=== PATIENT | female | born 1970 | race Caucasian/White ===

== ENCOUNTER 2020-11-11 21:15 | Emergency (ER) | payer SELFPAY ==
--- NOTE | ~2020-11-11 | XR_ITS ---
EXAMINATION: XR hand LT 2V INDICATION: Left hand swelling TECHNIQUE: Two views of the left hand are obtained. COMPARISON: None available FINDINGS: There is dorsal soft tissue swelling of the hand. Bone alignment is normal. There is no fra cture. There is mild osteoarthritis. IMPRESSION: 1. Soft tissue swelling without acute osseous abnormality. Reviewed, dictated and finalized at location A.
--- NOTE | ~2020-11-11 | XR_ITS ---
EXAMINATION: XR wrist LT 2V INDICATION: Left wrist swelling TECHNIQUE: Two views of the left wrist are obtained. COMPARISON: None available FINDINGS: There is dorsal soft tissue swelling of the hand and wrist. Bone alignment is normal. There is no fracture. There is mild osteoarthritis. IMPRESSION: 1. Soft tissue swelling without acute osseous abnormality. Reviewed, dictated and finalized at location A.
[2020-11-11 21:43] VITALS: BP 139/87; PULSE 91; RESP 20; TEMP 36.7; O2SAT 100
[2020-11-11] MEDS: SODIUM CHLORIDE 0.9% IV 1,000 ML 999 ML IV CONT (22:09)
[2020-11-11] MEDS: KETOROLAC 30 MG/ML VIAL (*BKC) IV PUSH (22:10)
--- NOTE | 2020-11-11 22:29 | PC.NURSE ---
Assumed care of patient, Lab is attempted to obtain blood at this time
[2020-11-11 22:41] LABS: Basophils Absolute Auto 0.02 K/mm3 (0.00-0.10); Basophils Percent Auto 0.2 % (0.0-1.0); Eosinophils Absolute Auto 0.09 K/mm3 (0.02-0.50); Eosinophils Percent Auto 0.9 % (1.0-6.0); Hematocrit 29.8 % (35.0-49.0); Hemoglobin 9.6 g/dL (12.0-15.0); Immature Granulocyte Absolute 0.06 K/mm3 (0.00-0.00); Immature Granulocyte Percent A 0.6 % (0.0-0.0); Lymphocytes Absolute Auto 1.47 K/mm3 (1.10-4.50); Lymphocytes Percent Auto 14.7 % (18.0-42.0); Mean Corpuscular HGB Conc 32.2 g/dL (32.0-36.0); Mean Corpuscular Hemoglobin 29.5 pg (27.0-31.0); Mean Corpuscular Volume 91.7 fL (78.0-102.0); Mean Platelet Volume 8.4 fl (9.2-11.8); Monocytes Absolute Auto 0.92 K/mm3 (0.10-0.90); Monocytes Percent Auto 9.2 % (2.0-11.0); Neutrophils Absolute Auto 7.5 K/mm3 (1.7-7.2); Neutrophils Percent Auto 74.4 % (50.0-70.0); Platelet Count Result 408 K/mm3 (150-420); Red Blood Count 3.25 M/mm3 (4.20-5.40); Red Cell Distribution Width 11.4 % (11.6-14.4)
[2020-11-11 22:56] LABS: Lactic Acid Reflex 1.7 mmol/L (0.4-2.0)
[2020-11-11 23:03] LABS: Add Urine Microscopic? YES; Bilirubin Urine Negative (Negative); Blood Urine 2+ (Negative); Color Urine Yellow (Yellow); Glucose Urine UA Negative (Negative); Ketones Urine Trace (Negative); Leukocyte Esterase Ur 3+ LEU/UL (Negative); Nitrate Urine Negative (Negative); Protein Urine 1+ (Negative); Urobilinogen Urine 0.2 mg/dL (0.2-1.0)
[2020-11-11 23:03] LABS: Alanine Aminotransferase 30 U/L (14-59); Alkaline Phosphatase 104 U/L (46-116); Anion Gap 5 mmol/L (8-16); Aspartate Amino Transferase 23 U/L (15-37); Bilirubin,Total 0.2 mg/dL (0.00-1.00); Blood Urea Nitrogen 10 mg/dL (7-18); Calcium 8.4 mg/dL (8.5-10.1); Carbon Dioxide 30 mmol/L (21-32); Chloride 99 mmol/L (98-108); Estimated CRCL calculation 67 ml/min; Estimated Glomerular Filt Rate > 60; Glucose 111 mg/dL (70-99); Osmolality Calculated 278 mOsm/kg (285-295); Potassium 3.8 mmol/L (3.5-5.1); Sodium 134 mmol/L (136-145); Total Protein 6.7 g/dL (6.4-8.2)
[2020-11-11 23:04] LABS: CRP > 10.6 mg/dL (0.0-0.9)
[2020-11-11 23:09] LABS: INR 1.1; Partial Thromboplastin Time 28.2 SEC (23.90-30.70); Prothrombin Time 11.7 Seconds (9.50-12.10)
--- NOTE | 2020-11-11 23:11 | ED.SKABFB ---
HPI - Skin/Abscess/Foreign Bdy General Chief complaint: Skin/Abscess/Foreign Body Stated complaint: . Source: patient Mode of arrival: ambulatory Limitations: no limitations History of Present Illness HPI narrative: This is a 50-year-old female that presents with left hand swelling warm and tender to touch was apparently in and other ER and had IV placed in her left hand, has been on antibiotics but subsequent to that has developed left hand swelling pain with warmth and tenderness. Currently patient is afebrile with no shortness of breath no chest pain no abdominal pain no nausea vomiting no diarrhea constipation. Onset (ago): week(s) Location: L hand Severity: moderate Severity scale (1-10): 6 Quality: aching Pain Consistency: constant and intermittent Relieving factors: none Exacerbating factors: none Context: none Associated symptoms: denies other symptoms Related Data Home Medications Medication Instructions Recorded Confirmed No Home Medications 11/11/20 11/11/20 Allergies Allergy/AdvReac Type Severity Reaction Status Date / Time No Known Allergies Allergy Verified 11/11/20 21:54 Review of Systems Review of Systems: All systems reviewed & are unremarkable except as noted in HPI and below PMFSH Past Medical History Medical History Patient denies medical problems Social History Social History Gender identity (if verbalized by the patient): Female Exam Const: General: no acute distress and alert Orientation/consciousness: patient oriented x3 HENMT: Head: normal to inspection Eyes: Conjunctivae: conjunctivae normal Pupils: Equal, round and reactive pupils present EOM: EOMs intact bilaterally Direct Ophthalmoscopy: no photophobia Neck: Neck: normal visual inspection Chest: Chest palpation & inspection: normal inspection of the chest Resp: Effort & Inspection: normal respiratory effort Cardio: Rate: regular rate Rhythm: regular rhythm GI: GI Palp: Yes Soft to palpation Percussion: Yes normal to percussion Back/Spine/Pelvis: Back: no CVA tenderness Skin: Rashes: no rashes Other: left hand swollen warm red and tender to touch Neuro: General: patient oriented x3 and moves all extremities Extrem: General: normal to inspection and no pedal edema Psych: Appearance: grossly normal Mental Status: mental status grossly normal Affect: normal affect Course Course Emergency Course: patient's labs and x-rays reviewed with patient will give her dose of IV ceftriaxone patient received IV Toradol and her pain level has improved. Vital Signs Vital signs: Vital Signs Temperature 36.7 C 11/11/20 21:43 Pulse Rate 91 11/11/20 21:43 Respiratory Rate 20 11/11/20 21:43 Blood Pressure 139/87 11/11/20 21:43 Pulse Oximetry 100 11/11/20 21:43 Temperature 36.7 C 11/11/20 21:43 Pulse Rate 91 11/11/20 21:43 Respiratory Rate 20 11/11/20 21:43 Blood Pressure 139/87 11/11/20 21:43 Pulse Oximetry 100 11/11/20 21:43 MDM - Skin/Abscess/Foreign Bdy Lab Data Result diagrams: 11/11/20 22:37 11/11/20 22:37 Labs: Lab Results 11/11/20 11/11/20 11/11/20 Range/Units 22:37 22:37 22:37 WBC 10.0 (4.8-10.8) K/mm3 RBC 3.25 L (4.20-5.40) M/mm3 Hgb 9.6 L (12.0-15.0) g/dL Hct 29.8 L (35.0-49.0) % MCV 91.7 (78.0-102.0) fL MCH 29.5 (27.0-31.0) pg MCHC 32.2 (32.0-36.0) g/dL RDW 11.4 L (11.6-14.4) % Plt Count 408 (150-420) K/mm3 MPV 8.4 L (9.2-11.8) fl Immature Gran % (Auto) 0.6 H (0.0-0.0) % Neut % (Auto) 74.4 H (50.0-70.0) % Lymph % (Auto) 14.7 L (18.0-42.0) % [place] % (Auto) 9.2 (2.0-11.0) % Eos % (Auto) 0.9 L (1.0-6.0) % Baso % (Auto) 0.2 (0.0-1.0) % Lymph # (Auto) 1.47 (1.10-4.50) K/mm3 [place] # (Auto) 0.92 H (0.10-0.90) K/mm3 Eos # (Auto)
[2020-11-11 23:12] LABS: Appearance Urine Cloudy (Clear); Squamous Epithelial Cell Urine Moderate /hpf (Few); WBC Clumps Urine Present /hpf; WBC Urine >75 /hpf (0-3)
[2020-11-11 23:13] LABS: Bacteria Urine 4+ /hpf; Mucus Urine Heavy /lpf
[2020-11-11 23:32] VITALS: BP 98/61; PULSE 78; RESP 16; O2SAT 99
[2020-11-12 00:35] VITALS: BP 102/60; PULSE 88; RESP 16; O2SAT 98
== END 2020-11-12 00:37 | disposition home or self-care (01) ==
PROVIDERS: Emergency Provider Emergency Medicine; PCP Family Medicine
DX: L03.114 Cellulitis of left upper limb (principal)
CPT/HCPCS: 36415; 73100; 73120; 80053; 81001; 83605; 85025; 85610; 85730; 86140; 87040; 87086; 87088; 96365; 96375; 99283; 99284; J0696; J1885; J7030